=== PATIENT | female | born 1990 | race Caucasian/White ===

== ENCOUNTER 2018-04-10 10:12 | Inpatient (IN) | payer BC ==
[~2018-04-10] VITALS: Ht 170.2 cm; Wt 96.8 kg
[2018-04-10] VITALS (22 sets, daily range): BP systolic 117–146; BP diastolic 58–93; PULSE 61–90; TEMP 97.5–98.3
[~2018-04-10 10:12] MED LIST: PRENATAL 1 VITA1 TAB PO; PRILOSEC 20MG20 MG PO
[2018-04-10 12:13] LABS: BASO # 0.1 (0.0-0.2); BASO % 0.4 % (0.0-2.0); EOS # 0.1 (0.0-0.7); EOS % 0.6 % (0-4.0); GRAN # 10.5 (1.4-6.5); HEMOGLOBIN 12.9 g/dl (12.5-16.0); LYMPH # 1.6 (1.2-3.4); LYMPH % 12.4 % (20.0-51.0); MEAN CELL VOLUME 85 fl (80.0-100.0); MEAN CORPUSCULAR HEMOGLOBIN 30 pg (27.0-31.0); MEAN CORPUSCULAR HGB CONC 35 g/dl (33.0-37.0); MEAN PLATELET VOLUME 12.1 fl (7.4-10.4); MONO # 0.7 (0.1-0.6); MONO % 5.2 % (1.7-9.3); PLATELET COUNT 172 K/mm3 (130-400); RED BLOOD COUNT 4.33 M/mm3 (4.10-5.30); REDCELL DISTRIBUTION WIDTH-CV 12.6 % (11.5-14.5)
[2018-04-10 12:15] LABS: HEMATOCRIT 36.6 % (37.0-47.0)
[2018-04-11 04:15] VITALS: BP 117/72; PULSE 59; TEMP 97.7
[2018-04-11 07:30] VITALS: BP 134/74; PULSE 57; TEMP 97.6
[2018-04-11 07:51] VITALS: BP 139/74; PULSE 57; TEMP 97.6
[2018-04-11] MEDS ORDERED: MOTRIN 600600 MG/TAB PO (09:34)
[2018-04-11] MEDS ORDERED: PERCOCET 325 MG1 TA2 PO (09:34)
[2018-04-11 11:30] VITALS: BP 127/63; PULSE 71; TEMP 97.9
[2018-04-11 15:01] VITALS: BP 122/61; PULSE 71; TEMP 97.6
[2018-04-11 18:45] VITALS: BP 129/91; PULSE 71; TEMP 98.2
[2018-04-12 07:00] VITALS: BP 122/71; PULSE 68; TEMP 97.4
== END 2018-04-12 12:30 | disposition home or self-care (01) | DRG 775 ==
LOC: LDR 10:12 → OB 20:30
PROVIDERS: Obstetrics & Gynecology
PROC: 10E0XZZ Delivery of Products of Conception, External Approach (ICD-10-PCS; principal; 2018-04-10)
PROC: 0KQM0ZZ Repair Perineum Muscle, Open Approach (ICD-10-PCS; 2018-04-10)
DX: O70.1 Second degree perineal laceration during delivery (principal); Z37.0 Single live birth; O36.0930 Maternal care for other rhesus isoimmunization, third trimester, not applicable or unspecified; Z3A.39 39 weeks gestation of pregnancy; Z22.330 Carrier of Group B streptococcus
CPT/HCPCS: J2540; J2590; J7120